=== PATIENT | male | born 1960 | race Caucasian/White ===

== ENCOUNTER 2018-06-03 05:36 | Inpatient (IN) | payer BC, OTHER ==
[2018-05-13 08:49] LABS: HEMATOCRIT 47.9 % (42.0-52.0); HEMOGLOBIN 16.6 gm/dL (14.0-18.0); MCHC 34.7 g/dL (28.0-37.0); MCV 86.7 fL (80.0-100.0); RBC 5.52 mil/uL (4.50-6.00); RDW 13.6 % (10.5-14.5); WBC 8.8 thou/uL (4.0-11.0)
[2018-05-13 08:51] LABS: URINE BILIRUBIN NEGATIVE (Negative); URINE BLOOD NEGATIVE (Negative); URINE CLARITY CLEAR; URINE GLUCOSE-RANDOM* NEGATIVE (Negative); URINE KETONES NEGATIVE (Negative); URINE LEUKOCYTES-REFLEX NEGATIVE (Negative); URINE NITRITE-REFLEX NEGATIVE (Negative); URINE PROTEIN (DIPSTICK) NEGATIVE (Negative); URINE SPECIFIC GRAVITY <= 1.005 (1.005-1.035); URINE UROBILINOGEN 0.2 E.U./dl (0.2-1.0)
[2018-05-13 08:52] LABS: URINE COLOR PALE YELLOW
[2018-05-13 08:57] LABS: CALCIUM 9.3 mg/dL (8.5-10.1); POTASSIUM 4.3 mmol/L (3.5-5.1)
[2018-05-13 09:06] LABS: PROTIME 10.5 Seconds (9.3-11.4)
--- NOTE | 2018-05-14 04:52 | EKG ---
[address] [address] ELECTROCARDIOGRAM REPORT Name: AUBREY DAWN Room #: PRE IN ..#: [id number] ������������������ Admission: ������������������ Attend Phys: Pepe Joshi MD Discharge: ������������������ Date of : 56 Report #: [id number] ����������������������������������������������������������������� [id number] THIS REPORT FOR: //name// [facility] Test Date: 2018-05-13 Test Time: 08:44:52 Pat Name: AUBREY DAWN Department: Room: Gender: Evp Managing Director: Jah POPE : 1960 Requested By: Pepe Joshi Order Number: [id number] MD: Art Zamora Measurements Intervals [place] Rate: 57 P: 31 CT: 170 QRS: 7 QRSD: 83 T: 38 QT: 417 QTc: 406 Interpretive Statements Sinus rhythm No previous ECG available for comparison Electronically Signed On 05-14-2018 4:52:01 OTM CONSULTANT by Art Zamora [email or web address] ��������������������������������������������� <ELECTRONICALLY SIGNED> ���������������������������������������� By: Art Zamora MD ��������������������������������������������� 05/14/18 0452 [id number] [id number] Art Zamora MD /EPI
[~2018-06-03] VITALS: Ht 170.2 cm; Wt 113.4 kg
--- NOTE | ~2018-06-03 | O ---
[facility] [place] [address] OPERATIVE REPORT Name: AUBREY DAWN Room #: 150-2 [facility] IN M.R.#: [id number] Admission: 06/03/18 ������������������ Attend Phys: Pepe Joshi MD Discharge: ������������������ Date of : 56 Report #: [id number] THIS REPORT FOR: //name// CC: Teddy Joshi DATE OF SERVICE: 06/03/2018 PREOPERATIVE DIAGNOSIS: Right hip osteoarthritis. POSTOPERATIVE DIAGNOSIS: Right hip osteoarthritis. PROCEDURE: Right total hip arthroplasty. SURGEON: Pepe Joshi MD. SUPERINTENDENT TRANSMISSION: Lauren Sanchez PA-C. INDICATIONS FOR SUPERINTENDENT TRANSMISSION: Throughout the case, extensive retraction and manipulation of the hip was required. This was afforded to me by my compounding assistant. ANESTHESIA: General endotracheal. IMPLANTS: [employer] size 13 high offset Synergy press fit stem, a size 56 R3 acetabular cup with one acetabular screw and a size 40 +4 Oxinium head. ESTIMATED BLOOD LOSS: 300 mL. COMPLICATIONS: None. SPECIMENS: None. CONDITION UPON LEAVING THE OPERATING ROOM: Stable. INDICATION FOR PROCEDURE: The patient is a 58-year-old gentleman with severe right hip osteoarthritis. He had failed conservative measures for this and after discussion with him, he elected for right total hip arthroplasty. DESCRIPTION OF PROCEDURE: Risks, benefits, alternatives, complications were discussed in detail with the patient including but not limited to risk of anesthesia, risk of damage to nerves, arteries, blood vessels, risk for infection, bleeding, risk for continued hip pain, leg length discrepancy, instability and need for reoperation. Informed consent was obtained from the patient. Right hip was appropriately marked in the preoperative holding area. IV Ancef was given for preoperative antibiotics. He was brought to the operating room and placed in supine position on operating room table. [address] [address] OPERATIVE REPORT Name: LÓPEZAUBREY Terell Room #: 150-2 ADM IN M.R.#: [id number] Admission: 06/03/18 ������������������ Attend Phys: Pepe Joshi MD Discharge: ������������������ Date of : 56 Report #: [id number] endotracheal anesthesia was induced without complication. He was then placed in the left lateral decubitus position with the right hip uppermost. Right hip and lower extremity were then prepped and draped in normal sterile fashion. Timeout was performed properly identifying the patient and procedure as well as the instrumentation and implants. All in the operating room were in agreement. Standard posterior approach to the hip was made with 10 blade through the skin. Dissection was taken down to the fascia with Bovie cautery and a Marti elevator was used to clean the fascia. Fresh 10 blade was used to make a fascial incision. This was taken proximally and distally with curved Villegas scissor. Charnley retractor was placed. Trochanteric bursa was taken down with Bovie cautery. Piriformis tendon was identified, tagged and taken down with Bovie cautery. Short external rotators were also taken down with Bovie cautery. Capsulotomy was made and capsule ends were tagged for later repair. The hip was dislocated and there was extensive osteoarthritic change in femoral head. Femoral neck cut was made 1 cm proximal to lesser trochanter based on preoperative templating and femoral head was removed. Deep acetabular retractors were placed. The labrum was removed sharply. Pulvinar was removed with Bovie cautery. Acetabulum was then sequentially reamed up to a size 56 at which point, there was excellent bleeding cancellous bone. This was trialed with a size 55 cup and found to have a good fit. A final size 56 R3 acetabular cup was then placed and seated. One screw was placed for backup fixation. The polyethylene liner for a 40 head was placed. Attention was then turned to the femur. This was reamed and broached up to a size 13, at which point, the size 13 broach was stable, was trialed with a 40 +0 head. Hip was reduced, taken through range of motion and found to be stable. He is slightly short on the right compared to left. It was felt we could make up for this with the final implant. Hip was dislocated and the broach was removed and final size 13 high offset Synergy press fit stem was placed. This was then trialed with a 40 +4 head. Hip was reduced, taken through range of motion, found to be stable, found to have equal leg lengths. Hip was dislocated and the trial head was removed. A final size 40 +4 Oxinium head was then placed. Hip was reduced, taken through range of motion, found to be stable, found to have equal leg lengths. Hip was thoroughly irrigated with normal saline. Periarticular injection consisting of morphine, ropivacaine, epinephrine and Toradol was placed around the hip joint capsule. A gram of vancomycin was placed deep in the joint. Capsule and piriformis were repaired with 0 FiberWire. Fascia was closed with 0 Vicryl. Skin was closed with 2-0 Vicryl, 3-0 Monocryl. Dermabond and a BHUMIKA dressing was applied. The patient tolerated this procedure well and went to recovery room under care of anesthesia postoperatively. ��������������������������������������������� ���������������������������������������� By: ��������������������������������������������� [id number] Pepe Joshi MD /nt
[~2018-06-03 05:36] MED LIST: ALEVE220 MG PO; ASPIR 8181 MG PO; BYSTOLIC 5 MG5 M1 PO; CO Q-10300 MG PO; ZOCOR20 MG PO
[2018-06-03 13:28] VITALS: BP 149/74
[2018-06-03 17:45] VITALS: BP 109/67
[2018-06-03 18:15] VITALS: BP 112/70
--- NOTE | 2018-06-03 18:30 | NUR ---
PT RECEIVED FROM THE REC RM TO 422 ALERT AND IN NO ACUTE DISTRESS. ORAL MED GIVEN FOR PAIN. NO PAIN AT PRESENT. IV FLUIDS INFSUSING. EATING AND DRINKING W/O NAUSEA. ENC TO COUGH AND DEEP BREATHE
[2018-06-03 20:00] VITALS: BP 109/65
[2018-06-04] VITALS: BP 101/56
[2018-06-04 04:35] VITALS: BP 106/63
--- NOTE | 2018-06-04 04:38 | NUR ---
ASSUMED CARE AT 1900, ASSESSMENT COMPLETED. PT REPORTS MODERATE PAIN IN RIGHT LEG, REPORTS STILL HAVING NUMBNESS/TINGLING FROM THE NERVE BLOCK; DISCUSSED PAIN MED OPTIONS, HAD GOOD PAIN CONTROL WITH OXYCONTIN UNTIL ABOUT 0100 WHEN HE ASKED FOR ADDITIONAL PAIN MEDS, GAVE NORCO. C/O FEELING QUEASY AFTER TAKING PAIN MEDS EARLIER IN THE DAY, GAVE HIM CRACKERS AND A PO REGLAN TO HELP WITH ANY NAUSEA WITH HS MEDS, NO FURTHER COMPLAINTS OVERNIGHT. DENIES SOB, REMAINS ON 2L NC HE HAD BEEN DESATTING TO HIGH 80'S ON RA WHENEVER HE FELL ASLEEP; RT EDUCATED ON USE OF I.S. URINATING WELL. BHUMIKA DRESSING C/D/I, MAINTAINING ICE PACK AT SITE, EDUCATED ON ROM AND QUAD EXERCISES. NO OTHER CONCERNS, WILL CONTINUE TO MONITOR.
[2018-06-04 05:48] LABS: HEMATOCRIT 37.9 % (42.0-52.0); HEMOGLOBIN 12.5 gm/dL (14.0-18.0); MCH 28.9 pg (26.0-34.0); MCHC 33.1 g/dL (28.0-37.0); MCV 87.2 fL (80.0-100.0); RBC 4.34 mil/uL (4.50-6.00); RDW 13.9 % (10.5-14.5); WBC 17.8 thou/uL (4.0-11.0)
[2018-06-04 08:17] VITALS: BP 111/65
[2018-06-04] MEDS ORDERED: NEURONTIN 300300 M1 PO (10:19)
[2018-06-04] MEDS ORDERED: TRI-BUFFERED A325 M1 PO (10:19)
--- NOTE | 2018-06-04 10:51 | NUR ---
PT A&OX4, IV INFUSING IN L HAND, PT/OT SEEING PT AT THIS TIME. STATES PAIN VERY LOW, PT PRE MEDICATED FOR PT/OT THERAPY.
--- NOTE | 2018-06-04 12:09 | NUR ---
PT ADMITTED RELATED TO RIGHT THR. CM REVIEWED CHART AND SPOKE WITH CARE TEAM. CM MET WITH PT AT BEDSIDE THIS DAY. PT IS A&O X4. CM ROLE INTRODUCED. PT INDICATED HE LIVES IN A 2 STORY HOUSE WITH HIS WITH 20 STEPS TO ENTER AND 20 STEPS INSIDE TO SECOND STORY BEDROOM. 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 PT INDICATED THAT HE IS SET UP WITH [facility] AT [address] [facility] [address] FOR HH THEN OP PT AND OT. PT WILL NEED A FWW FOR HOME USE. CM NOTIFIED PP LIAISON AND SHE WILL DELIVER WALKER PTD. PT IS TO DISCHARGE HOME THIS DAY. NO OTHER CM INTERVENTION INDICATED AT THIS TIME. CASE CLOSED.
[2018-06-04 16:04] VITALS: BP 111/65
--- NOTE | 2018-06-04 16:47 | NUR ---
DC ORDERS RECEIVED, DC INSTRUCTIONS, SCRIPTS AND F/U APPOINTMENT REVIEWED. IV REMOVED FROM L HAND. VOLUNTEER ESCORTED PT TO MAIN ENTRANCE.
== END 2018-06-04 16:47 | disposition home or self-care (01) | DRG 470 ==
LOC: PRE 05:36 → TBA 06:00 → PRE 11:29 → 4E 17:04 → ENTRNSPT 06-04 16:24 → 4E 06-04 16:47
PROVIDERS: ADMIT Orthopaedic Surgery
PROC: 0SR906A Replacement of Right Hip Joint with Oxidized Zirconium on Polyethylene Synthetic Substitute, Uncemented, Open Approach (ICD-10-PCS; principal; 2018-06-03)
DX: M16.11 Unilateral primary osteoarthritis, right hip (principal); M17.11 Unilateral primary osteoarthritis, right knee; M51.36 Other intervertebral disc degeneration, lumbar region; Z79.82 Long term (current) use of aspirin; Z88.2 Allergy status to sulfonamides; Z79.899 Other long term (current) drug therapy
CPT/HCPCS: 10783; 50010; 50101; 50382; 50414; 53000; 53078; 53368; 54118; 56524; 56527; 56528; 56530; 57095; 57103; 62110; 62900; 70005